=== PATIENT | male | born 1945 | race Caucasian/White ===

== ENCOUNTER → 2016-07-23 | Outpatient (CLI) | payer MEDICARE, BC | END | disposition home or self-care (01) | LOC: RAD.S 07-11 08:30 | DX: R20.9 Unspecified disturbances of skin sensation (principal); R53.1 Weakness; Z87.891 Personal history of nicotine dependence; M47.892 Other spondylosis, cervical region ==

== ENCOUNTER → 2016-08-01 | Outpatient (CLI) | payer MEDICARE, BC | END | disposition home or self-care (01) | LOC: RAD.S 09:52 | DX: M89.38 Hypertrophy of bone, other site (principal); M47.892 Other spondylosis, cervical region ==